=== PATIENT | male | born 1970 | race Caucasian/White ===

== ENCOUNTER 2021-12-01 10:36 | Outpatient (CLI) | payer SELFPAY | END 2021-12-01 10:37 | disposition home or self-care (01) | LOC: CSHWCC 10:36 | PROVIDERS: ATTEND Preventive Medicine Undersea and Hyperbaric Medicine | DX: E11.621 Type 2 diabetes mellitus with foot ulcer (principal); L97.526 Non-pressure chronic ulcer of other part of left foot with bone involvement without evidence of necrosis | CPT/HCPCS: 97605; 99203; G0463 ==

== ENCOUNTER 2021-12-04 12:50 | Outpatient (CLI) | payer SELFPAY | END 2021-12-04 12:51 | disposition home or self-care (01) | LOC: CSHWCC 12:50 | PROVIDERS: ATTEND Preventive Medicine Undersea and Hyperbaric Medicine | DX: E11.621 Type 2 diabetes mellitus with foot ulcer (principal); L97.526 Non-pressure chronic ulcer of other part of left foot with bone involvement without evidence of necrosis; Z89.422 Acquired absence of other left toe(s) | CPT/HCPCS: 97605 ==

== ENCOUNTER 2021-12-15 11:35 | Outpatient (CLI) | payer SELFPAY | END 2021-12-15 11:36 | disposition home or self-care (01) | LOC: CSHWCC 11:35 | PROVIDERS: ATTEND Preventive Medicine Undersea and Hyperbaric Medicine | DX: E11.621 Type 2 diabetes mellitus with foot ulcer (principal); L97.526 Non-pressure chronic ulcer of other part of left foot with bone involvement without evidence of necrosis; Z89.422 Acquired absence of other left toe(s) | CPT/HCPCS: 99212; G0463 ==